=== PATIENT | female | born 1985 | race Caucasian/White ===

== ENCOUNTER 2024-01-10 17:11 | Inpatient (IN) | payer OTHER, SELFPAY ==
[2024-01-10] VITALS (7 sets, daily range): BP systolic 110–152; BP diastolic 41–93; BMI 43.3
[2024-01-10 12:45] LABS: % Basophils 0.4 % (0-2); % Immature Granulocytes 0.4 % (0-0.5); % Lymphocytes 15.6 % (20.5-51.1); % Monocytes 6.5 % (1.7-9.3); % Neutrophils 72.1 % (42.2-75.2); Absolute Eosinophils 0.3 10^3/uL (0-0.7); Absolute Lymphocytes 0.9 10^3/uL (1.2-3.4); Absolute Monocytes 0.4 10^3/uL (0.1-0.6); Hematocrit 30.2 % (37.0-47.0); Hemoglobin 9.7 g/dL (12.0-16.0); Mean Corp Hgb Conc. 32.1 g/dL (33.0-37.0); Mean Corpuscular Hgb 28.4 pg (27.0-31.0); Mean Corpuscular Volume 88.3 fL (81.0-99.0); Mean Platelet Volume 10.5 fL (7.4-10.4); Nucleated Red Blood Cells % 0 %; Platelet Count 271 10^3/uL (130-400); Red Blood Cell Count 3.42 10^6/uL (4.20-5.40); Red Cell Dist. Width 13.8 % (11.5-14.5); White Blood Cell Count 5.6 10^3/uL (4.8-10.8)
[2024-01-10 13:04] LABS: ALT (SGPT) 30 U/L (0-35); AST (SGOT) 71 U/L (14-36); Albumin 5.1 g/dl (3.5-5.0); Alkaline Phosphatase 53 U/L (38-126); Blood Urea Nitrogen 15 mg/dl (7-17); Calcium 10.1 mg/dl (8.4-10.2); Carbon Dioxide 30 mmol/L (22-30); Chloride 95 mmol/L (98-107); Glucose 110 mg/dl (70-99); Potassium 3.7 mmol/L (3.5-5.1); Sodium 136 mmol/L (135-145); Total Bilirubin 0.8 mg/dl (0.2-1.3); Total Protein 8.3 g/dl (6.3-8.2); eGFR > 60.00
[2024-01-10 13:09] LABS: Troponin I < 0.012 ng/ml
--- NOTE | 2024-01-10 13:18 | ED.GENMED ---
History of Present Illness
General
Chief Complaint: Breathing Problem
Source: patient and other ([employer])
Time Seen by Provider: 01/10/24 12:53
Travel History
Have you had any contact with someone who has COVID-19?: No
Do you have any symptoms of coronavirus? Fever > 100 degrees, chills, cough, shortness of breath, sore throat, loss of taste or smell, muscle aches, or headache?: No
History of Present Illness
History of Present Illness:
39-year-old female with increased shortness of breath gradual over months. Bilateral leg swelling although patient states this has been stable. History of asthma. Also history of anemia. No chest pain pleuritic pain fever cough or other
complaints. Symptoms are mostly with exertion.
Past History
Past History
ED Past Medical History: Asthma and Other (Anemia)
Social History
Tobacco: Vaping
Personal: Single
Review of Systems
Review of Systems
All Other Systems: Not applicable
Constitutional: Denies fever
Respiratory: Denies cough
Cardiac: Denies chest pain or palpitations
Phy Exam
Physical Exam
Physical Exam:
GENERAL: Alert and oriented in no apparent distress . Patient witnessed walking down the mack and appears mildly short of breath with
EYE: Orbits normal.
NECK: Supple, no thyroid palpable
ENT: Pharynx without erythema
CARDIAC: Regular rate and rhythm without any obvious murmurs.
LUNGS: Clear breath sounds,normal
ABDOMEN: Soft, without focal tenderness or distention. Elevated BMI
NEUROLOGICAL: Alert and oriented , grossly non-focal
SKIN: Warm and dry, no rash or lesion, no discoloration, skin intact.
MUSCULOSKELETAL: Significant minimal pitting bilateral lower extremity edema with diffuse erythema to both lower extremities. Good distal pulses and color
PSYCH: Normal and appropriate interaction..
Course
Orders/Labs/Results
Orders:
Orders
01/10/24 12:25
Electrocardiogram (*1) Urgent
Reason for Study: Shortness of Breath
EKG- Treatment ONCE
01/10/24 12:34
CMP [Comprehensive Metabolic Panel] Urgent
Complete Blood Count/With Diff Urgent
Ferritin Urgent
Comment: ADD ON
Folate Urgent
Comment: ADD ON
Free T4 Urgent
HCG, Serum Qualitative Screen Urgent
Comment: ADD ON
Iron Urgent
Comment: ADD ON
NT-proBNP Urgent
TSH Reflex To Free T4 Urgent
Comment: ADD ON
Total Iron Binding Urgent
Comment: ADD OMN
Troponin I Urgent
Vitamin B12 Urgent
01/10/24 13:16
Add On- LAB Urgent
Tests Added?: qual bhcg
01/10/24 13:17
Add On- LAB Urgent
Tests Added?: tsh reflex t4
CT Chest Pe Study Urgent
Comment:
Reason For Exam: Short of breath with exertion
US Periph Venous LOWER Ext Octavio Urgent
Comment:
Reason For Exam: bilaterl leg swelling
01/10/24 13:51
Urinalysis Reflex To Culture Urgent
Date Specimen was Collected: 01/10/24
Time Specimen was Collected: 13:44
01/10/24 14:51
Echo 2D MMode Color/Doppler Urgent
Reason for Study: pericardial effusion
01/10/24 15:42
Admit/Transfer Patient As Directed
Co-Sign Provider:
Level of Care: Inpatient admission
Assign to:: Telemetry
Physician / Group: do
Diagnosis: pericardial effusion
Reason for Telemetry: Other
Other Reason for Telemetry: pericardial effusion
Date to Stop Telemetry: 01/12/24
Time to Stop Telemetry: 11:00
Reason for Hospitalization: pericardial effusion
Expected length of stay greater than two midnights?: Yes
ELOS- Estimated Length of Stay in days: 3
I certify the patient meets the requirements for IP care: Yes
01/10/24 15:43
Code Status As Directed
Resuscitation Status: Full Code
01/10/24 16:10
Add On- LAB Stat
Tests Added?: TIBC, B12, folate, iron, ferritine
01/10/24 16:22
Weight As Directed
Frequency: Once
01/10/24 17:29
Acetaminophen [Tylenol] 650 mg PO Q4HPRN PRN
Ondansetron Injectable [Zofran] 4 mg IV Q6HPRN PRN
01/10/24 17:29
CARDIOLOGY CONSULT Routine
Consulting Provider: Alexis Butler
Was physician already notified: Yes
Activity As Directed
Activity Level: As Tolerated
Vital Signs As Directed
Frequency: Per unit guidelines
DX Deep Vein Thrombosis Video Routine
01/10/24 18:00
Enoxaparin Sodium [Lovenox] 40 mg SC QPM
01/11/24 Breakfast
Regular
At Your Request: Full Participation
Basic Metabolic Panel IN AM
Complete Blood Count/No Diff IN AM
01/11/24 08:00
Buprenorphine [Subutex] 16 mg SL DAILY
01/11/24 14:00
Buprenorphine [Subutex] 4 mg SL DAILY@1400
01/12/24 06:00
Basic Metabolic Panel IN AM
Complete Blood Count/No Diff IN AM
01/12/24 11:00
DC Protocol for Telemetry ONCE
01/13/24 06:00
Basic Metabolic Panel IN AM
Complete Blood Count/No Diff IN AM
01/14/24 06:00
Basic Metabolic Panel IN AM
Complete Blood Count/No Diff IN AM
01/15/24 06:00
Basic Metabolic Panel IN AM
Complete Blood Count/No Diff IN AM
Abnormal Lab Results
01/10/24
12:34
RBC 3.42 L 10^6/uL
(4.20-5.40)
Hgb 9.7 L g/dL
(12.0-16.0)
Hct 30.2 L %
(37.0-47.0)
MCHC 32.1 L g/dL
(33.0-37.0)
MPV 10.5 H fL
(7.4-10.4)
Absolute Lymphs (auto) 0.9 L 10^3/uL
(1.2-3.4)
Lymphocytes % 15.6 L %
(20.5-51.1)
Chloride 95 L mmol/L
(98-107)
Glucose 110 H mg/dl
(70-99)
AST 71 H U/L
(14-36)
Total Protein 8.3 H g/dl
(6.3-8.2)
Albumin 5.1 H g/dl
(3.5-5.0)
TSH (Reflex) 232.00 H uIU/ml
(0.47-4.68)
Free T4 < 0.07 L ng/dl
(0.78-2.19)
01/10/24 12:34
01/10/24 12:34
Vital Signs
Initial and Last Documented VS:
Initial Vital Signs
Temp Pulse Resp BP Pulse Ox
99.0 F 75 16 152/93 100
01/10/24 12:20 01/10/24 12:20 01/10/24 12:20 01/10/24 12:20 01/10/24 12:20
Last Documented Vital Signs
Temp Pulse Resp BP Pulse Ox
98.1 F 65 18 133/75 97
01/10/24 17:30 01/10/24 17:30 01/10/24 17:30 01/10/24 17:30 01/10/24 17:30
MDM/Problems Addressed
Differential Diagnosis Includes:
Shortness of breath with exertion leg swelling. Hypothyroidism, CHF, DVT, respiratory issue. Workup in progress
*Radiology
Radiology exam reviewed: radiology read reviewed (Significant pericardial effusion) and other (Negative leg ultrasounds)
*Pulse Oximetry
Patient hypoxic: no
*EKG
Interpreted by ED Provider?: Yes
Interpretation: abnormal
Comparison EKG: no comparison EKG present
Heart Rate: 70
Rate: normal
Rhythm: sinus
Strong: normal axis
Interval: normal interval
QRS Pattern: low voltage
Ischemia: non-specific ST changes
*Critical Care Note
Total Time (30-74mins, 75-104mins- exclusive of procedures): Not Applicable
Update Note
Update Note:
Significant symptomatic pericardial effusion. Discussed with cardiology. Inpatient management.
ED Attending Note
-
Portions of this chart may have been created with voice recognition software.� Occasional wrong word or��sound alike� substitutions may have occurred due to the inherent limitations of voice recognition software.
Discharge Plan
Departure
Patient Disposition: Admit
Date of Disposition: 01/10/24
Time of Disposition: 14:53
Presentation/result/management discussed w/ accepting MD/DO: Cardiology
Discharge Problem:
Symptomatic pericardial effusion, Hypothyroidism
Interventions
Interventions:
*Risk Screen - Suicide Last Done: 01/10/24 14:16
*Neglect/Abuse Screening Last Done: 01/10/24 14:16
ED- Fall Risk Assessment Last Done: 01/10/24 14:15
*ED COVID-19 Vaccine History Last Done: 01/10/24 12:20
*Nursing Disposition Last Done: 01/10/24 17:27
ED- Cardiac Assessment Last Done: 01/10/24 14:15
ED- Pulmonary Assessment Last Done: 01/10/24 14:15
Discharge Date and Time
Discharge Date/Time: 01/10/24 17:28
[2024-01-10 13:39] LABS: NT-proBNP 54.1 pg/ml
[2024-01-10 13:56] LABS: HCG, Serum Qualitative Screen Negative
[2024-01-10 13:59] LABS: Urine Albumin Trace (Neg - Trace); Urine Bilirubin Negative (Negative); Urine Character Clear (Clear); Urine Color Yellow; Urine Glucose Negative (Negative); Urine Ketone Negative (Negative); Urine Leukocyte Negative (Negative); Urine Nitrite Negative (Negative); Urine Occult Blood Negative (Negative); Urine Urobilinogen Negative (Neg - 1+)
--- NOTE | 2024-01-10 15:36 | HPS.HSE ---
Addendum entered and electronically signed by Uri Bingham MD 01/10/24 16:34:
39-year-old female with a past medical history of asthma, morbid obesity, and opioid dependency on buprenorphine presents with an 8-month history of dyspnea with activity, and swelling of the hands/legs/face. Associated symptoms include fatigue,
weakness. Chest CT shows pericardial effusion. She denies fever, denies recent respiratory illnesses. Cardiology has been consulted.
Suspect her symptoms are secondary to severe hypothyroidism. She is not hypotensive, not bradycardic, not hypoglycemic. She will need to be started on oral levothyroxine, 1.6 mcg/kg. Nursing to check her current weight.
Will follow-up echocardiogram and cardiology recommendations regarding her pericardial effusion.
Continue Subutex for her opioid dependency.
I have personally seen and examined the patient, and agree with the plan of care as documented by JORGE Richmond.
Advance care planning discussed, patient is a full code.
All other issues as outlined by the advanced care practitioner.
Total time spent to see the patient on the floor, examine the patient, review data and lab results, discuss treatment plan with patient, nursing staff around 75 minutes.
Original Note:
Family Physician
-
Family Physician: Fabián Villafuerte
Chief Complaint
-
sob
History of Present Illness
39-year-old female with PMH for anemia, asthma presented to us with with increased shortness of breath,b/L LE edema gradual over months. stated her hands are swollen. eyes are puffy. she can't do any activity due to sob. denied chest pain. denied
KHOURY, dizzy or syncopal episode. denied fever, chills, congestion, cough. denied abdominal pain, n,v,d. denied dysuria or hematuria.
CT with pericardial effusion
Medical History
Past Medical History
Past Medical History: Reports Other
Additional Past Medical History:
anemia
asthma
Past Surgical History: Reports None
Social History
Tobacco: Vaping
Alcohol: None
Drug: None
Family History
Family History: Not pertinent
Allergies / Home Medications
Allergies reflects when Allergies were last updated in [facility].
Home Medications with original date entered in [facility]
Allergy/Medication List:
Allergies
Allergy/AdvReac Type Severity Reaction Status Date / Time
No Known Allergies Allergy Unverified 01/10/24 12:19
Review of Systems
-
Constitutional: Reports No Symptoms
EENT: Reports No Symptoms
Respiratory: Reports Trouble Breathing
Cardiac: Reports No Symptoms
Abdomen/GI: Reports No Symptoms
: Reports No Symptoms
Musculoskeletal: Reports Edema (LE)
Skin: Reports No Symptoms
Neurological: Reports No Symptoms
Endocrine: Reports No Symptoms
Hematologic/Lymphatic: Reports No Symptoms
Psych: Reports No Symptoms
Physical Exam
Vital Signs
Vital Signs
Temp Pulse Resp BP Pulse Ox
99.0 F 75 20 132/87 99
01/10/24 12:20 01/10/24 14:00 01/10/24 14:00 01/10/24 13:25 01/10/24 14:00
Physical Exam
General: Well Developed, Well Nourished and No Apparent Distress
HEENT: NormoCephalic, Moist mucous membranes and Atraumatic
Respiratory: Clear
Cardiac: S1/S2 and Regular Rhythm; No Murmur or Rub
GI: Soft, Non Tender, Non Distended and Normal Bowel Sounds; No Organomegaly
Rectal: Deferred by Provider
Musculoskeletal: No Clubbing, No Cyanosis, No Edema and Other (LE edema)
Skin: No Rash
Neuro: AO x 3 and Nonfocal/grossly intact
Psych: Calm
Laboratory Results
-
01/10/24 12:34
01/10/24 12:34
Laboratory Results
Total Bilirubin 0.8 mg/dl (0.2-1.3) 01/10/24 12:34
AST 71 U/L (14-36) H 01/10/24 12:34
ALT 30 U/L (0-35) 01/10/24 12:34
Alkaline Phosphatase 53 U/L (38-126) 01/10/24 12:34
Troponin I < 0.012 ng/ml 01/10/24 12:34
Data Reviewed
-
CT Scan: Report Reviewed by me
Lab Data: Labs Reviewed by me
Impression/Plan
-
# Symptomatic pericardial effusion
-Chest CT with impression of o evidence of pulmonary embolism or thoracic aortic dissection.
2. Moderate pericardial effusion, measuring 2 cm in thickness.
3. Mild subsegmental atelectasis within the right upper lobe, otherwise clear lungs.
-Lower extremities ultrasound negative
-Echocardiogram
-Cardiology consulted
# Chronic anemia
-Hemoglobin 9.7
-No active bleeding
-Continue to monitor
-will add iron panel
# DVT prophylaxis
-Lovenox subcu
# CODE STATUS
-Full code
--- NOTE | 2024-01-10 16:08 | PHANOTE ---
01/10/2024, med rec tech, spoke to pt. to obtain her med. history; pt. gets her Subutex through the [facility] in [place]; no pharmacy fill data, no [facility] records, and no PDMP records; [place] closed at time of interview.
--- NOTE | 2024-01-10 16:41 | CON.CAR ---
Consultation
Consultation Request
Date/Time Consultation Requested: 01/10/24 4:20
Date/Time Consultation Performed: 01/10/24 4:45
Requesting Provider: Dr. Justin
Performing Provider: Dr. Butler
Reason for Consultation: pericardial effusion
Medical History
-
Chief Complaint: shortness of breath
History of Present Illness:
39-year-old female with past medical history of substance abuse on Suboxone who presents to [facility] with 8 months of shortness of breath, fatigue, weight gain, lower extremity edema, and facial changes. She has noticed a slow progression
of symptoms including shortness of breath and dyspnea on exertion and weight gain. She has noted some lower extremity edema. She has not seek medical care for the symptoms. She denies any chest pains. She does have some mild orthopnea. She has
no fevers or chills. She has no coughing or wheezing. She takes no supplements. She has no known history of thyroid disease. She does not use any substances including heroin, cocaine or opioids in over 6 years. She previously did use IV heroin
for several years.
Past Medical History
Past Medical History: Psychiatric (Substance abuse. History of IV drug use including heroin and opiates. Has not used in 6 years.)
Past Surgical History: None
Social History
Tobacco: Former Smoker
Alcohol: None
Drug: Former User
Personal:
Living: With Family
Family History
Family History: Other (no hx of thyroid dx)
Allergies / Home Medications
Allergy/AdvReac Type Severity Reaction Status Date / Time
No Known Allergies Allergy Unverified 01/10/24 12:19
�Medication �Instructions �Recorded �Confirmed �Type
buprenorphine HCl 8 mg sublingual 4 mg sublingual DAILY@1400 01/10/24 01/10/24 History
tablet
buprenorphine HCl 8 mg sublingual 16 mg sublingual DAILY 01/10/24 01/10/24 History
tablet
ibuprofen 200 mg tablet 400 mg PO BIDPRN PRN mild pain 01/10/24 01/10/24 History
Review of Systems
-
History Source: Patient
Constitutional: Weight Gain, Fatigue and Sleep Disturbance
EENT: No Symptoms
Respiratory: Cough and Trouble Breathing
Cardiac: No Symptoms
Abdomen/GI: Constipated
: No Symptoms
Musculoskeletal: Edema
Skin: No Symptoms
Neurological: No Symptoms
Endocrine: Temperature Intolerance
Hematologic/Lymphatic: No Symptoms
Physical Exam
Vital Signs
Temp Pulse Resp BP Pulse Ox
99.0 F 68 18 127/41 96
01/10/24 12:20 01/10/24 16:00 01/10/24 16:00 01/10/24 16:00 01/10/24 16:00
Lab Results
01/10/24 12:34
01/10/24 12:34
Troponin I < 0.012 ng/ml 01/10/24 12:34
Ppf-G-Pomcnnliwsy Pept 54.1 pg/ml 01/10/24 12:34
Physical Exam
General: Well Developed, Well Nourished and No Apparent Distress
HEENT: Normocephalic and Other (myxedema of eyes)
Respiratory: Clear and Non Labored Respirations
Cardiac: S1/S2, Regular Rhythm and Murmur (1/6 syst LSB)
GI: Soft, Non Tender and Non Distended
Musculoskeletal: Edema
Skin: Other (Chronic stasis changes)
Neuro: AO x 3
Psych: Calm
Impression / Plan
-
Assess:
Moderate to severe pericardial effusion
Severe hypothyroidism with myxedema
History of IV drug use on Suboxone
Leg edema
Anemia
abnormal transaminases
Echo: LVEF 55 to 60% with moderate to severe pericardial effusion.
CT Scan: No pulmonary embolism. No aortic dissection. Moderate pericardial effusion, mild atelectasis of right upper lung
Plan:
She presents with severe hypothyroidism with myxedema likely over the past 8 months. Her echocardiogram does have a moderate to large pericardial effusion present. There is no clear evidence of chamber collapse. I would treat this conservatively
for now and start her on thyroid supplementation. Would add gentle IV fluids to avoid intra volume depletion.
Will repeat echo in 3 to 4 days after initiation of thyroid supplementation.
It is not clear whether her shortness of breath is from myxedema or from her effusion. We will follow her clinically.
Continue telemetry. She does have some sinus bradycardia likely due to her thyroid disease.
Data Reviewed
-
EKG: Report Reviewed by me
CT Scan: Report Reviewed by me
Medical Tests (Nuc Med, Echo etc): Image Personally Visualized and interpreted
Labs: Labs Reviewed by me
[2024-01-10 16:48] LABS: Free T4 < 0.07 ng/dl (0.78-2.19)
[2024-01-10 16:51] LABS: Iron 79 ug/dl (37-170)
[2024-01-10 17:09] LABS: Percent Saturation 20 % (20-50); Total Iron Binding Capacity 395 ug/dl (265-497)
[2024-01-10 18:20] LABS: Ferritin 8.9 ng/ml (6.24-137)
[2024-01-10 18:52] LABS: Folate 12.5 ng/ml (2.76-20); Vitamin B12 263 pg/ml (239-931)
[2024-01-10] MEDS: LOVENOX 40 MG SC (20:06)
[2024-01-11] VITALS (7 sets, daily range): BP systolic 98–129; BP diastolic 53–88
[2024-01-11] MEDS: SYNTHROID 175 MCG PO (06:14)
--- NOTE | 2024-01-11 07:19 | W.PN.HOSP.TC ---
Today's Communication/Plan
-
see bold
Assessment / Plan
Assessment / Plan
HPI: 39-year-old female with a past medical history of asthma, morbid obesity, and opioid dependency on buprenorphine presents with an 8-month history of dyspnea with activity, and swelling of the hands/legs/face. Associated symptoms include
fatigue, weakness. Chest CT shows pericardial effusion. She denies fever, denies recent respiratory illnesses. Cardiology has been consulted.
Suspect her symptoms are secondary to severe hypothyroidism. She is not hypotensive, not bradycardic, not hypoglycemic.
#Myxedema/severe hypothyroidism
Patient has been having symptoms for 8 months
TSH 232, free T4 less than 0.07
Started Synthroid 175 mcg daily, she needs repeat TFT in 4-6 weeks
#Pericardial effusion
Cardiology following, recommends monitoring for now
Needs repeat echocardiogram January 12 for reevaluation
#Intermittent sinus bradycardia
Likely due to hypothyroidism, monitor
#Iron deficiency anemia
Iron studies noted, start ferrous sulfate 325 mg p.o. daily
#Opioid dependency
Continue Subutex
#Morbid obesity
Affects all aspects of care
#Asthma
Stable, no wheezing
DVT prophylaxis�subcu Lovenox
Physical Exam
General: Morbidly obese, no acute distress
HEENT: Normocephalic, Atraumatic, EOMI, MMM
Edema of the face noted
Respiratory: Clear to Auscultation bilaterally
Cardiac: Normal S1/S2, Regular Rate and Rhythm
GI: Soft, Nontender, Nondistended, Normal Bowel Sounds
Extremities: No Clubbing, Cyanosis
Diffuse anasarca, with 3+ pedal edema of bilateral lower extremities
Neuro: Nonfocal/Grossly Intact
Psych: Calm, Cooperative
Derm: No Visible lesions
Anticipated Discharge: 24 - 48 hours
Subjective/Interval History
-
Date of Service: January 11, 2024
Patient shortness of breath is unchanged from admission. No chest pain, no vomiting. No fever.
Objective Data
-
Labs:
Laboratory Results
01/11/24
07:04
WBC Pending
Hgb Pending
Hct Pending
Plt Count Pending
Sodium Pending
Potassium Pending
Chloride Pending
Carbon Dioxide Pending
BUN Pending
Creatinine Pending
Glucose Pending
Calcium Pending
Vital Signs:
Vital Signs
Temp Pulse Resp BP Pulse Ox
97.7 F 57 18 108/74 96
01/11/24 03:50 01/11/24 03:50 01/11/24 03:50 01/11/24 03:50 01/11/24 03:50
I&O
01/10/24 01/11/24 01/12/24
06:59 06:59 06:59
Intake Total 360 / 360
Balance 360 / 360
[2024-01-11 07:22] LABS: Hematocrit 30.8 % (37.0-47.0); Hemoglobin 9.6 g/dL (12.0-16.0); Mean Corp Hgb Conc. 31.2 g/dL (33.0-37.0); Mean Corpuscular Hgb 28.2 pg (27.0-31.0); Mean Corpuscular Volume 90.3 fL (81.0-99.0); Mean Platelet Volume 10.7 fL (7.4-10.4); Platelet Count 251 10^3/uL (130-400); Red Blood Cell Count 3.41 10^6/uL (4.20-5.40); Red Cell Dist. Width 13.9 % (11.5-14.5); White Blood Cell Count 5.6 10^3/uL (4.8-10.8)
[2024-01-11 07:53] LABS: Blood Urea Nitrogen 17 mg/dl (7-17); Calcium 10.1 mg/dl (8.4-10.2); Carbon Dioxide 31 mmol/L (22-30); Chloride 96 mmol/L (98-107); Estimated Creatinine Clearance 77 ml/min; Glucose 103 mg/dl (70-99); Potassium 3.7 mmol/L (3.5-5.1); Sodium 136 mmol/L (135-145); eGFR 59.79
[2024-01-11] MEDS: SUBUTEX 16 MG SL (08:17)
[2024-01-11] MEDS: FEOSOL 325 MG PO (08:17)
[2024-01-11] MEDS: ZOFRAN 4 MG IV ×2 (08:21→16:50)
--- NOTE | 2024-01-11 09:49 | W.PN.CARDCBS ---
Today's Communication / Plan
-
She presents with severe hypothyroidism with myxedema likely over the past 8 months. Her echocardiogram does have a moderate to large pericardial effusion present. There is no clear evidence of chamber collapse.
Cont conservative tx for now. Continue with thyroid supplementation as per primary service.
Gentle IVF as needed to avoid volume contraction.
Check echo January 12 to reeval.
It is not clear whether her shortness of breath is from myxedema or from her effusion. Cont to follow clinically.
Continue telemetry given some sinus bradycardia which is likely due to her thyroid disease.
Impression / Plan
-
Impression:
Moderate to severe pericardial effusion
Severe hypothyroidism with myxedema
History of IV drug use on Suboxone
Leg edema
Anemia
abnormal transaminases
Echo: LVEF 55 to 60% with moderate to severe pericardial effusion.
CT Scan: No pulmonary embolism. No aortic dissection. Moderate pericardial effusion, mild atelectasis of right upper lung
Plan:
She presents with severe hypothyroidism with myxedema likely over the past 8 months. Her echocardiogram does have a moderate to large pericardial effusion present. There is no clear evidence of chamber collapse.
Cont conservative tx for now. Continue with thyroid supplementation as per primary service.
Gentle IVF as needed to avoid volume contraction.
Check echo January 12 to reeval.
It is not clear whether her shortness of breath is from myxedema or from her effusion. Cont to follow clinically.
Continue telemetry given some sinus bradycardia which is likely due to her thyroid disease.
Progress Note - Coil Former
Subjective
Date of Service: January 11, 2024
Pt seen and examined. No chest pain. Some shortness of breath.
Objective
Labs:
01/11/24 07:04
01/11/24 07:04
Labs
Hgb 9.6 g/dL (12.0-16.0) L 01/11/24 07:04
Hct 30.8 % (37.0-47.0) L 01/11/24 07:04
Plt Count 251 10^3/uL (130-400) 01/11/24 07:04
Sodium 136 mmol/L (135-145) 01/11/24 07:04
Potassium 3.7 mmol/L (3.5-5.1) 01/11/24 07:04
BUN 17 mg/dl (7-17) 01/11/24 07:04
Creatinine 1.2 mg/dL (0.6-1.0) H 01/11/24 07:04
Glucose 103 mg/dl (70-99) H 01/11/24 07:04
Troponins
01/10/24
12:34
Troponin I < 0.012
Vital Signs and I&O:
Vital Signs
Temp Pulse Resp BP Pulse Ox
97.7 F 60 20 129/76 98
01/11/24 07:20 01/11/24 07:20 01/11/24 07:20 01/11/24 07:20 01/11/24 07:20
Vital Signs
Temp Pulse Resp BP Pulse Ox
97.7 F 60 20 129/76 98
01/11/24 07:20 01/11/24 07:20 01/11/24 07:20 01/11/24 07:20 01/11/24 07:20
Intake & Output
01/09/24 01/10/24 01/11/24 01/12/24
06:59 06:59 06:59 06:59
Intake Total 360 / 360
Balance 360 / 360
Physical Exam
Physical Exam
General: No acute distress, AAOX3
Neck: Negative JVD
Heart: Regular, Negative S3 positive S1/S2, Negative S4, No murmur
Lungs: CTA b/l, negative wheezes/rales/rhonchi
Abd: Obesity Positive BS, NT/ND, neg rebound/rigidity/guarding
Ext: Negative cyanosis/clubbing. b/l LE edema
Neuro: nonfocal
[2024-01-11] MEDS: SUBUTEX 4 MG SL (13:45)
[2024-01-11] MEDS: TYLENOL 650 MG PO (16:50)
[2024-01-11] MEDS: LOVENOX SC (18:18)
[2024-01-12 03:30] VITALS: BP 114/67
[2024-01-12] MEDS: SYNTHROID 175 MCG PO (05:56)
[2024-01-12 07:10] VITALS: BP 138/65
--- NOTE | 2024-01-12 07:55 | W.PN.HOSP.TC ---
Today's Communication/Plan
-
see bold
Assessment / Plan
Assessment / Plan
HPI: 39-year-old female with a past medical history of asthma, morbid obesity, and opioid dependency on buprenorphine presents with an 8-month history of dyspnea with activity, and swelling of the hands/legs/face. Associated symptoms include
fatigue, weakness. Chest CT shows pericardial effusion. She denies fever, denies recent respiratory illnesses. Cardiology has been consulted.
Suspect her symptoms are secondary to severe hypothyroidism. She is not hypotensive, not bradycardic, not hypoglycemic.
#Myxedema/severe hypothyroidism
Patient has been having symptoms for 8 months
TSH 232, free T4 less than 0.07
Started Synthroid 175 mcg daily, she needs repeat TFT in 4-6 weeks
#Pericardial effusion
Cardiology following, recommends monitoring for now
Needs repeat echocardiogram January 12 for reevaluation
#Intermittent sinus bradycardia
Likely due to hypothyroidism, monitor
#Iron deficiency anemia
Iron studies noted, started ferrous sulfate 325 mg p.o. daily
#Chronic lower back pain
Patient requesting lumbar spine MRI�ordered
Start lidocaine patches, Tylenol 1 g 3 times daily
#Opioid dependency
Continue Subutex
#Morbid obesity
Affects all aspects of care
#Asthma
Stable, no wheezing
DVT prophylaxis�subcu Lovenox
Physical Exam
General: Morbidly obese, no acute distress
HEENT: Normocephalic, Atraumatic, EOMI, MMM
Edema of the face noted
Respiratory: Clear to Auscultation bilaterally
Cardiac: Normal S1/S2, Regular Rate and Rhythm
GI: Soft, Nontender, Nondistended, Normal Bowel Sounds
Extremities: No Clubbing, Cyanosis
Diffuse anasarca, with 3+ pedal edema of bilateral lower extremities
Neuro: Nonfocal/Grossly Intact
Anticipated Discharge: 24 - 48 hours
Subjective/Interval History
-
Date of Service: January 12, 2024
Patient complains of chronic lower back pain. She continues to have intermittent shortness of breath. No fever, no vomiting.
Objective Data
-
Labs:
Laboratory Results
01/12/24
06:57
WBC Pending
Hgb Pending
Hct Pending
Plt Count Pending
Sodium Pending
Potassium Pending
Chloride Pending
Carbon Dioxide Pending
BUN Pending
Creatinine Pending
Glucose Pending
Calcium Pending
Vital Signs:
Vital Signs
Temp Pulse Resp BP Pulse Ox
97.5 F 66 22 114/67 96
01/12/24 03:30 01/12/24 03:30 01/12/24 03:30 01/12/24 03:30 01/12/24 03:30
I&O
01/11/24 01/12/24 01/13/24
06:59 06:59 06:59
Intake Total 360 / 360 1200 / 1200
Balance 360 / 360 1200 / 1200
[2024-01-12 08:18] LABS: Hematocrit 32.5 % (37.0-47.0); Hemoglobin 9.8 g/dL (12.0-16.0); Mean Corp Hgb Conc. 30.2 g/dL (33.0-37.0); Mean Corpuscular Hgb 28.1 pg (27.0-31.0); Mean Corpuscular Volume 93.1 fL (81.0-99.0); Mean Platelet Volume 11.1 fL (7.4-10.4); Platelet Count 268 10^3/uL (130-400); Red Blood Cell Count 3.49 10^6/uL (4.20-5.40); Red Cell Dist. Width 14.1 % (11.5-14.5); White Blood Cell Count 6.5 10^3/uL (4.8-10.8)
[2024-01-12 08:30] LABS: Blood Urea Nitrogen 22 mg/dl (7-17); Calcium 9.7 mg/dl (8.4-10.2); Carbon Dioxide 32 mmol/L (22-30); Chloride 99 mmol/L (98-107); Estimated Creatinine Clearance 77 ml/min; Glucose 95 mg/dl (70-99); Potassium 3.9 mmol/L (3.5-5.1); Sodium 136 mmol/L (135-145); eGFR 59.79
--- NOTE | 2024-01-12 08:46 | W.PN.CARDCBS ---
Today's Communication / Plan
-
Echo January 12
Impression / Plan
-
.
Impression:
Moderate to severe pericardial effusion
Severe hypothyroidism with myxedema
Dyspnea
History of IV drug use on Suboxone
Leg edema
Anemia
abnormal transaminases
Echo: LVEF 55 to 60% with moderate to severe pericardial effusion.
CT Scan: No pulmonary embolism. No aortic dissection. Moderate pericardial effusion, mild atelectasis of right upper lung
Plan:
She presented with severe hypothyroidism with myxedema likely over the past 8 months.
Her echocardiogram showed moderate to large pericardial effusion present without evidence of chamber collapse.
Cont conservative tx for now. Continue with thyroid supplementation as per primary service.
Gentle IVF as needed to avoid volume contraction.
Check echo January 12 to reeval. Cont to follow clinically.
It is not clear whether her shortness of breath is from myxedema or from her effusion.
Check nocturnal pulse ox given possible LACEY
Continue telemetry given some sinus bradycardia which is likely due to her thyroid disease.
Progress Note - Gut Cleaner
Subjective
Date of Service: January 12, 2024
Pt seen and examined. No complaints. No chest pain or shortness of breath.
Objective
Labs:
01/12/24 06:57
01/12/24 06:57
Labs
Hgb 9.8 g/dL (12.0-16.0) L 01/12/24 06:57
Hct 32.5 % (37.0-47.0) L 01/12/24 06:57
Plt Count 268 10^3/uL (130-400) 01/12/24 06:57
Sodium 136 mmol/L (135-145) 01/12/24 06:57
Potassium 3.9 mmol/L (3.5-5.1) 01/12/24 06:57
BUN 22 mg/dl (7-17) H 01/12/24 06:57
Creatinine 1.2 mg/dL (0.6-1.0) H 01/12/24 06:57
Glucose 95 mg/dl (70-99) 01/12/24 06:57
Troponins
01/10/24
12:34
Troponin I < 0.012
Vital Signs and I&O:
Vital Signs
Temp Pulse Resp BP Pulse Ox
97.5 F 66 22 114/67 96
01/12/24 03:30 01/12/24 03:30 01/12/24 03:30 01/12/24 03:30 01/12/24 03:30
Vital Signs
Temp Pulse Resp BP Pulse Ox
97.5 F 66 22 114/67 96
01/12/24 03:30 01/12/24 03:30 01/12/24 03:30 01/12/24 03:30 01/12/24 03:30
Intake & Output
01/10/24 01/11/24 01/12/24 01/13/24
06:59 06:59 06:59 06:59
Intake Total 360 / 360 1200 / 1200
Balance 360 / 360 1200 / 1200
Physical Exam
Physical Exam
General: No acute distress, AAOX3
Neck: Negative JVD
Heart: Regular, Negative S3 positive S1/S2, Negative S4, No murmur
Lungs: CTA b/l, negative wheezes/rales/rhonchi
Abd: Positive BS, NT/ND, neg rebound/rigidity/guarding
Ext: Negative cyanosis/clubbing/edema
Neuro: nonfocal
[2024-01-12] MEDS: SUBUTEX 16 MG SL (09:11)
[2024-01-12] MEDS: FEOSOL 325 MG PO (09:11)
[2024-01-12] MEDS: TYLENOL 1000 MG PO ×3 (10:16→21:49)
[2024-01-12] MEDS: LIDOCAINE 4% PATCH 2 PATCH TOPICAL (10:16)
--- NOTE | 2024-01-12 10:44 | CM ---
Met with patient at bedside; initial assessment completed
Pharmacy verified: [facility], [address], [place]
Patient reported she lives in a one floor apartment with betsy and 15 yr old daughter; 5 steps into the building; 7 steps up to apartment; full bathroom has tub w/shower
PLOF: patient reported that she has chronic back pain, numbness; going up/down stairs are a 'problem'; needs assistance with ADLs; 'hard to get around'; does not use a device with ambulation; can drive but does not have a vehicle
DME: none
SNF/Rehab/Home Care utilization history: none
Transportation: [facility], will provide transport home
Plan: discharge to home; may benefit having a cane or walker; notified Attending
[2024-01-12 11:10] VITALS: BP 125/61
[2024-01-12] MEDS: SUBUTEX 4 MG SL (13:31)
--- NOTE | 2024-01-12 14:25 | PTOTSP ---
The patient is independent with ambulation and elevations without a device, slow speed due to back pain but otherwise no instability. Discussed options for assistive devices if needed, such as a SPC or RW for longer distances, but she does not feel
she needs one at this point. The patient may benefit from Outpatient PT to address the back pain. Otherwise no acute PT needs at this time, will sign off.
[2024-01-12 15:20] VITALS: BP 127/81
[2024-01-12] MEDS: LOVENOX SC (18:43)
[2024-01-12 19:50] VITALS: BP 115/56
[2024-01-12 23:26] VITALS: BP 122/72
[2024-01-13 03:14] VITALS: BP 111/63
[2024-01-13] MEDS: SYNTHROID 175 MCG PO (06:30)
[2024-01-13 08:15] LABS: Hematocrit 30.5 % (37.0-47.0); Hemoglobin 9.3 g/dL (12.0-16.0); Mean Corp Hgb Conc. 30.5 g/dL (33.0-37.0); Mean Corpuscular Hgb 28.3 pg (27.0-31.0); Mean Corpuscular Volume 92.7 fL (81.0-99.0); Mean Platelet Volume 10.9 fL (7.4-10.4); Platelet Count 249 10^3/uL (130-400); Red Blood Cell Count 3.29 10^6/uL (4.20-5.40); Red Cell Dist. Width 13.9 % (11.5-14.5); White Blood Cell Count 5.1 10^3/uL (4.8-10.8)
[2024-01-13 08:33] VITALS: BP 106/59
[2024-01-13 08:42] LABS: Blood Urea Nitrogen 20 mg/dl (7-17); Calcium 9.8 mg/dl (8.4-10.2); Carbon Dioxide 34 mmol/L (22-30); Chloride 95 mmol/L (98-107); Estimated Creatinine Clearance 84 ml/min; Glucose 95 mg/dl (70-99); Potassium 3.8 mmol/L (3.5-5.1); Sodium 137 mmol/L (135-145); eGFR > 60.00
--- NOTE | 2024-01-13 08:49 | W.PN.HOSP.TC ---
Today's Communication/Plan
-
For repeat echocardiogram today
Assessment / Plan
Assessment / Plan
HPI: 39-year-old female with a past medical history of asthma, morbid obesity, and opioid dependency on buprenorphine presents with an 8-month history of dyspnea with activity, and swelling of the hands/legs/face. Associated symptoms include
fatigue, weakness. Chest CT shows pericardial effusion. She denies fever, denies recent respiratory illnesses. Cardiology has been consulted.
Suspect her symptoms are secondary to severe hypothyroidism. She is not hypotensive, not bradycardic, not hypoglycemic.
#Myxedema/severe hypothyroidism
Patient has been having symptoms for 8 months
TSH 232, free T4 less than 0.07
Started Synthroid 175 mcg daily, she needs repeat TFT in 4-6 weeks
#Pericardial effusion
01/09 Echo Normal left ventricular size, wall thickness and systolic function. No regional
wall motion abnormalities are seen. LV ejection fraction is 55-60% by visual
assessment. Normal diastolic function.
Normal right ventricular size and function.
Moderate to large pericardial effusion without evidence of hemodynamic
compromise. The effusion is circumferential, however the largest area is
around the RV and apex.
Cardiology following, for repeat echocardiogram today
#Intermittent sinus bradycardia
Likely due to hypothyroidism, monitor
#Iron deficiency anemia
Iron studies noted, started ferrous sulfate 325 mg p.o. daily
#Chronic lower back pain
Lumbar spine XR neg
Started lidocaine patches, Tylenol 1 g 3 times daily 01/11
Start Flexeril 10 mg 3 times daily 01/12
Recommend outpatient follow-up with orthospine
#Nocturnal hypoxia
Likely has undiagnosed sleep apnea
Check nocturnal pulse ox, recommend outpatient sleep study
#Opioid dependency
Continue Subutex
#Morbid obesity
Affects all aspects of care
#Asthma
Stable, no wheezing
DVT prophylaxis�subcu Lovenox
Full Code
Total time spent to see the patient on the floor, examine the patient, review data and lab results, discuss treatment plan with patient, nursing staff around 51 minutes.
Physical Exam
General: Morbidly obese, no acute distress
HEENT: Normocephalic, Atraumatic, EOMI, MMM
Edema of the face noted
Respiratory: Clear to Auscultation bilaterally
Cardiac: Normal S1/S2, Regular Rate and Rhythm
GI: Soft, Nontender, Nondistended, Normal Bowel Sounds
Extremities: No Clubbing, Cyanosis
Diffuse anasarca, with 3+ pedal edema of bilateral lower extremities
Neuro: Nonfocal/Grossly Intact
Anticipated Discharge: 24 - 48 hours
Subjective/Interval History
-
Date of Service: January 13, 2024
Patient reports her shortness of breath is unchanged. No fever, no vomiting. No chest pain.
Objective Data
-
Labs:
Laboratory Results
01/13/24
07:41
WBC 5.1
Hgb 9.3 L
Hct 30.5 L
Plt Count 249
Sodium 137
Potassium 3.8
Chloride 95 L
Carbon Dioxide 34 H
BUN 20 H
Creatinine 1.1 H
Glucose 95
Calcium 9.8
Vital Signs:
Vital Signs
Temp Pulse Resp BP Pulse Ox
97.4 F 59 18 106/59 96
01/13/24 08:33 01/13/24 08:33 01/13/24 08:33 01/13/24 08:33 01/13/24 08:33
I&O
01/12/24 01/13/24 01/14/24
06:59 06:59 06:59
Intake Total 1200 / 1200 1080 / 1080
Balance 1200 / 1200 1080 / 1080
[2024-01-13] MEDS: SUBUTEX 16 MG SL (09:04)
[2024-01-13] MEDS: FEOSOL 325 MG PO (09:04)
[2024-01-13] MEDS: LIDOCAINE 4% PATCH 2 PATCH TOPICAL (09:05)
[2024-01-13] MEDS: TYLENOL 1000 MG PO (09:05)
[2024-01-13] MEDS: MIRALAX 17 GRAMS PO (09:06)
--- NOTE | 2024-01-13 09:30 | W.PN.CARDCBS ---
Addendum entered and electronically signed by Rodri Martinez DO 01/13/24 10:56:
I saw and examined the patient.
The Financial Systems Manager's note was reviewed and I agree with the note.
Comment:
Plan:
Echo today to reeval pericardial effusion, may need to consider pericardiocentesis depending on findings and clinical course.
Cont thyroid supplementation as per primary service.
Nocturnal pulse ox.
Reviewed with primary service.
Original Note:
Today's Communication / Plan
-
Repeat echo to reassess pericardial effusion
If remains moderate-large, consider pericardial effusion
Continue Synthroid per primary service.
Impression / Plan
-
PCP: Dr. Villafuerte
Employee Services Manager: None, initially seen by Dr. Butler
Impression:
Moderate to severe pericardial effusion
Severe hypothyroidism with myxedema
Dyspnea
History of IV drug use on Suboxone
Leg edema
Anemia
abnormal transaminases
CT Scan 01/10/2024: No pulmonary embolism. No aortic dissection. Moderate pericardial effusion, mild atelectasis of right upper lung
Echo 01/10/2024: EF 55 to 60% with moderate to severe pericardial effusion.
Plan:
-Presented with severe hypothyroidism with myxedema likely over the past 8 months.
-CT scan in ER was negative for PE and aortic dissection, however did note moderate pericardial effusion.
-Underwent echo 01/09 as above which confirmed moderate to severe pericardial effusion without evidence of tamponade.
-Have been managing conservatively with thyroid supplementation and gentle IVFs.
-Will repeat echo today to reassess. If pericardial effusion remains in moderate-severe range, would consider pericardiocentesis.
-Still notes SOB, however unclear if this is from myxedema or effusion.
-Possible LACEY, consider checking nocturnal pulse ox.
Progress Note - Employee Services Manager
Subjective
Date of Service: January 13, 2024
Still SOB.
Objective
Labs:
01/13/24 07:41
01/13/24 07:41
Labs
Hgb 9.3 g/dL (12.0-16.0) L 01/13/24 07:41
Hct 30.5 % (37.0-47.0) L 01/13/24 07:41
Plt Count 249 10^3/uL (130-400) 01/13/24 07:41
Sodium 137 mmol/L (135-145) 01/13/24 07:41
Potassium 3.8 mmol/L (3.5-5.1) 01/13/24 07:41
BUN 20 mg/dl (7-17) H 01/13/24 07:41
Creatinine 1.1 mg/dL (0.6-1.0) H 01/13/24 07:41
Glucose 95 mg/dl (70-99) 01/13/24 07:41
Troponins
01/10/24
12:34
Troponin I < 0.012
Vital Signs and I&O:
Vital Signs
Temp Pulse Resp BP Pulse Ox
97.4 F 59 18 106/59 96
01/13/24 08:33 01/13/24 08:33 01/13/24 08:33 01/13/24 08:33 01/13/24 08:33
Vital Signs
Temp Pulse Resp BP Pulse Ox
97.4 F 59 18 106/59 96
01/13/24 08:33 01/13/24 08:33 01/13/24 08:33 01/13/24 08:33 01/13/24 08:33
Intake & Output
01/11/24 01/12/24 01/13/24 01/14/24
06:59 06:59 06:59 06:59
Intake Total 360 / 360 1200 / 1200 1080 / 1080
Balance 360 / 360 1200 / 1200 1080 / 1080
Physical Exam
Physical Exam
GEN: No distress, awake, alert, oriented x3
HEENT: supple, anicteric, mmm
LUNGS: CTA b/l, no wheezes/rales
CV: Reg, S1/S2, no murmur
EXT: No clubbing, cyanosis, or edema
NEURO: Gross non-focal
SKIN: Warm, dry, no rash
--- NOTE | 2024-01-13 10:10 | PTOTSP ---
Orders received. Chart reviewed. Pt currently at mod I level with basic self care, transfers and mobility in room and bathroom without AD. Skilled OT not indicated at this time.
[2024-01-13 11:33] VITALS: BP 120/79
[2024-01-13] MEDS: SUBUTEX 4 MG SL (13:29)
[2024-01-13] MEDS: FLEXERIL 10 MG PO (13:31)
--- NOTE | 2024-01-13 14:59 | W.DCSUMMARY ---
Discharge Summary
Discharge Data
Date of Admission: 01/10/24
Date of Discharge: 01/13/24
-
Pending Results: No
Hospital Course
First diagnosis:
Severe hypothyroidism
Pericardial effusion
Intermittent sinus bradycardia
Iron deficiency anemia
Chronic lower back pain, suspect muscular in etiology
Nocturnal hypoxia with probable obstructive sleep apnea
Obesity due to excess calories
Opioid dependency on Subutex
Morbid obesity
History of asthma
Consults: Cardiology
01/13/24 Echo: Normal left ventricular size, wall thickness and systolic function. No regional
wall motion abnormalities are seen. LV ejection fraction is 55-60%.
Moderate pericardial effusion without evidence of hemodynamic compromise.
Compared to previous echo from January 10 2024, which was reviewed, findings are
similar.
Chest CT:
1. No evidence of pulmonary embolism or thoracic aortic dissection.
2. Moderate pericardial effusion, measuring 2 cm in thickness.
3. Mild subsegmental atelectasis within the right upper lobe, otherwise clear lungs.
Hospital course: 39-year-old female with a past medical history of asthma, morbid obesity, and opioid dependency on buprenorphine presents with an 8-month history of dyspnea with activity, and swelling of the hands/legs/face. Associated symptoms
include fatigue, weakness.
Patient was found to have severe hypothyroidism with TSH 232, and free T4 less than 0.07. She was started on Synthroid 175 mcg p.o. daily. She has been instructed to get repeat thyroid function test with her primary care doctor in 4-6 weeks.
Patient was seen in conjunction with cardiology for her pericardial effusion. Her pericardial effusion was monitored, repeat echocardiogram done 3 days later shows moderate pericardial effusion without hemodynamic compromise. Cardiology does not
feel that this is causing her shortness of breath with activity. They recommend outpatient follow-up.
Patient was found to have iron deficiency anemia, she is started on iron supplement.
Patient has nocturnal hypoxia, suspect she has undiagnosed and untreated sleep apnea. She continues to have dyspnea with activity. Recommend she follows up with pulmonology in the office for further testing.
Patient complains of chronic back pain. Lumbar spine x-rays were negative. Suspect her back pain is musculoskeletal in origin. Her pain did improve with lidocaine patches, Tylenol 1 g 3 times daily, and Flexeril 10 mg 3 times daily. She will be
discharged on this.
Patient has chronic opioid dependency, and is continued on her Suboxone. MiraLAX was added daily for constipation prevention.
Patient's many multiple conditions have been optimized. She is medically stable for discharge, and needs to follow-up with her primary care doctor in 1 week, and cardiology and pulmonology in 2-3 weeks.
Disposition: Home self-care
Discharge planning: Required 40 minutes
Discharge Plan
-
Patient Disposition: Home (Routine Discharge)
Discharge Diagnosis/Procedures: Pericardial effusion, severe hypothyroidism, chronic lower back pain, probable obstructive sleep apnea, shortness of breath with activity, iron deficiency anemia
Diet: Low Fat and Low Cholesterol
Activity: As tolerated
Driving Restrictions: As prior to admission
Activity Restrictions/Additional Instructions:
You were started on levothyroxine for severe hypothyroidism.
You need to get repeat thyroid function test in 4-6 weeks with your primary care doctor.
Please follow-up with pulmonology for an outpatient sleep study�we suspect that you have undiagnosed/untreated obstructive sleep apnea. Pulmonology can also do further testing for your shortness of breath with activity.
You have been scheduled for a follow up echocardiogram (ultrasound of the heart) on 01/31/2024 at [facility]. You then have a follow up visit in the cardiology office at 8:00 AM.
Please follow-up with your primary care doctor in 1 week.
Referrals:
[facility] [Provider Group] - 01/31/24 4:00 pm (You have a follow up echocardiogram scheduled at the [place] office. Please call with questions. )
Fabián Villafuerte, DO [Family Provider] - in one week
Gayle Hensley, DO [Active] - in two to three weeks
Jennifer Nevarez PA-C [Specified Professional Personl] - 02/05/24 8:00 am (You have a follow up visit with Dr. Butler's PA, Jennifer Nevarez, at the [place] office. Please call with questions. )
Prescriptions:
New
cyclobenzaprine 10 mg Tablet
10 mg PO TID Qty: 90 0RF
lidocaine 4 % Adhesive Patch,Medicated
2 patch topical DAILY Qty: 30 0RF
ferrous sulfate [FeroSul] 325 mg (65 mg iron) Tablet
325 mg PO DAILY Qty: 0 0RF
levothyroxine 175 mcg Tablet
175 mcg PO DAILY@0700 Qty: 60 0RF
acetaminophen [Tylenol Extra Strength] 500 mg Tablet
1,000 mg PO TID Qty: 0 0RF
polyethylene glycol 3350 17 gram/dose powder
17 g PO DAILY Qty: 510 0RF
Continued
ibuprofen 200 mg Tablet
400 mg PO BIDPRN PRN (Reason: mild pain)
buprenorphine HCl 8 mg Tablet, Sublingual
16 mg SUBLINGUAL DAILY
Patient Comments:
01/10/2024, pt. gets this med. from [facility] in [place]; per pt., she picks up her Subutex on Mondays for the whole week and she takes 16 mg daily and 4 mg daily@1400.
buprenorphine HCl 8 mg Tablet, Sublingual
4 mg SUBLINGUAL DAILY@1400
Patient Comments:
01/10/2024, pt. gets this med. from [facility] in [place]; per pt., she picks up her Subutex on Mondays for the whole week and she takes 16 mg daily and 4 mg daily@1400.
Discharge Orders:
Discharge Patient (As Directed); Ordered 01/13/24
Ordered By: Uri Bingham
Discharge Date and Time
Print Language: SAMOAN
[2024-01-13 15:21] VITALS: BP 144/92
--- NOTE | 2024-01-13 16:27 | CM ---
CM reviewed chart and noted dc order
No dc needs noted
Discharge Disposition- home, no needs
== END 2024-01-13 16:36 | disposition home or self-care (01) | DRG 644 ==
LOC: 4 EAST ACU 17:11
PROVIDERS: Emergency Medicine; Registered Nurse; ADMITTING PHYSICIAN Internal Medicine Gastroenterology; ATTENDING PHYSICIAN Family Medicine; CONSULT PHYSICIAN Internal Medicine Cardiovascular Disease; EMERGENCY PHYSICIAN Emergency Medicine; FAMILY PHYSICIAN Internal Medicine
DX: E03.9 Hypothyroidism, unspecified (principal); F11.20 Opioid dependence, uncomplicated; I31.39 Other pericardial effusion (noninflammatory); Z68.41 Body mass index [BMI] 40.0-44.9, adult; Z87.891 Personal history of nicotine dependence; D50.9 Iron deficiency anemia, unspecified; E66.01 Morbid (severe) obesity due to excess calories; J45.909 Unspecified asthma, uncomplicated; M54.50 Low back pain, unspecified; G89.29 Other chronic pain; R00.1 Bradycardia, unspecified; G47.33 Obstructive sleep apnea (adult) (pediatric)
CPT/HCPCS: 93308; 71275; 72100; 80048; 80053; 81003; 82607; 82728; 82746; 83540; 83550; 83880; 84439; 84443; 84484; 84703; 85025; 85027; 87070; 93005; 93306; 93321; 93325; 93970; 97161; 99285; 99406; Q9967

== ENCOUNTER → 2024-01-31 15:57 | Outpatient (REF) | payer OTHER, SELFPAY | LOC: DHCBS MAIN 15:57 | PROVIDERS: ATTENDING PHYSICIAN Internal Medicine Cardiovascular Disease; FAMILY PHYSICIAN Internal Medicine | DX: I31.39 Other pericardial effusion (noninflammatory) (principal) | CPT/HCPCS: 93308 ==

== ENCOUNTER → 2024-03-27 11:17 | Outpatient (REF) | payer OTHER, SELFPAY | LOC: RCS 11:17 | PROVIDERS: ATTENDING PHYSICIAN Physician Assistant; FAMILY PHYSICIAN Internal Medicine | DX: I31.39 Other pericardial effusion (noninflammatory) (principal) | CPT/HCPCS: 93306 ==